=== PATIENT | female | born 1965 | race Caucasian/White ===

== ENCOUNTER 2017-04-08 07:30 | Inpatient (IN) | payer MEDICARE ==
[2017-04-08] VITALS (15 sets, daily range): BP systolic 81–126; BP diastolic 55–84; BMI 37.4
[~2017-04-08] VITALS: Ht 165.1 cm; Wt 103.9 kg
[~2017-04-08 07:30] MED LIST: CELEXA10 MG PO; FUROSEMIDE20 MG PO; K-TAB10 MEQ PO; LISINOPRIL10 MG PO; METOPROLOL TAR100 M1 PO; OMEPRAZOLE20 M1 PO; PROVENTIL/2.5 MG/3 M INH; ULTRAM50 MG PO; VENTOLIN HFA18 GM INH; VOLTAREN75 MG PO; ZANAFLEX4 MG PO
[2017-04-08 08:26] LABS: BASOPHILS 0.6 % (0-2); EOSINOPHILS 3.4 % (0-7); HEMATOCRIT 44.2 % (36.0-48.0); HEMOGLOBIN 14.6 g/dL (12-16); IMMATURE GRANULOCYTES 0.3 % (0-5); LYMPHOCYTES 21.2 % (15-50); MCH 32.4 pg (26.0-34.0); MCV 98.2 fL (80.0-100.0); MONOCYTES 5.7 % (2-11); NEUTROPHILS 68.8 % (40-80); PLATELET COUNT 274 10x3/uL (130-400); RDW 12.7 % (11.5-14.5)
[2017-04-08 08:31] LABS: ALBUMIN 3.7 g/dL (3.4-5.0); ALKALINE PHOSPHATASE 67 U/L (46-116); ALT (SGPT) 31 U/L (10-68); BILIRUBIN - TOTAL 0.24 mg/dL (0.2-1.3); CALC OSMOLALITY 271 mosm/kg (275-300); CALCIUM 9.2 mg/dL (8.5-10.1); CARBON DIOXIDE 32.5 mmol/L (21.0-32.0); CHLORIDE - SERUM 91 mmol/L (98-107); CREATININE - SERUM 0.8 mg/dL (0.6-1.3); PROTEIN - SERUM 8.8 g/dL (6.4-8.2); SODIUM 132 mmol/L (136-145); UREA NITROGEN 17 mg/dL (7-18); eGFR NON AFRICAN AMERICAN 80 mL/min (90-120)
[2017-04-08 08:33] LABS: GLUCOSE 188 mg/dL (74-106)
[2017-04-08 08:52] LABS: CREATINE KINASE 390 UL (21-215); MAGNESIUM - SERUM 1.8 mg/dL (1.8-2.4); PRO BNP 220 pg/mL (0-125); TROPONIN-I 0.042 ng/mL (0.000-0.060)
[2017-04-08 10:15] LABS: APPEARANCE CLEAR (CLEAR); COLOR YELLOW (YELLOW); GLUCOSE NEGATIVE (NEGATIVE); LEUKOCYTE ESTERASE TRACE (NEGATIVE); NITRITE NEGATIVE (NEGATIVE); PROTEIN 3+ mg/dL (NEGATIVE); SPECIFIC GRAVITY 1.015 (1.005-1.020)
[2017-04-08 10:16] LABS: BACTERIA FEW /hpf (NONE SEEN); BILIRUBIN NEGATIVE (NEGATIVE); GRANULAR CAST RARE /lpf (NONE SEEN); HYALINE CAST RARE /lpf (NONE SEEN); KETONE NEGATIVE (NEGATIVE); MUCUS <1+ /lpf (NONE SEEN); RED CELLS - URINE 0-5 /hpf (0-5); UROBILINOGEN NORMAL (NORMAL); WHITE CELLS - URINE 0-5 /hpf (0-5)
[2017-04-08 10:17] LABS: UDS - AMPHET NEGATIVE QUAL (NEGATIVE); UDS - BARB NEGATIVE QUAL (NEGATIVE); UDS - BENZO POSITIVE QUAL (NEGATIVE); UDS - COCAINE NEGATIVE QUAL (NEGATIVE); UDS - METH NEGATIVE QUAL (NEGATIVE); UDS - OPIATE NEGATIVE QUAL (NEGATIVE); UDS - PCP NEGATIVE QUAL (NEGATIVE); UDS - THC NEGATIVE QUAL (NEGATIVE)
--- NOTE | 2017-04-08 10:39 | NUR ---
REC'D PT FROM ER, PT ON VENT, NO FAMILY PRESENT, VSS, SEE SHIFT ASSESSMENT. ROOM FREE OF CLUTTER, BED ALARM ACTIVE, BED LOCKED IN LOWEST POSITION, WILL CONTINUE TO MONITOR PT.
--- NOTE | 2017-04-08 11:07 | NUR ---
AT THE BEDSIDE UPON ARRIVAL, INFORMED OF CONSULT ON PT.
--- NOTE | 2017-04-08 12:25 | NUR ---
PT FAMILY AT THE BEDSIDE, ALL QUESTIONS ANSWERED, PASSWORD INITIATED, WILL CONTINUE TO MONTIOR PT.
--- NOTE | 2017-04-08 14:31 | NUR ---
AT THE BEDSIDE, ADJUSTMENTS MADE TO VENT, PT TOLERATED WELL, WILL CONTINUE TO MONITOR PT.
--- NOTE | 2017-04-08 15:00 | NUR ---
PT SEDATED ON VENT, PT FAMILY AT THE BEDSIDE, ALL QUESTIONS ANSWERED, VSS, REASSESSMENT COMPELTED, SEE FLOW SHEET. ROOM FREE OF CLUTTER, CALL LIGHT IN REACH, WILL CONTINUE TO MONITOR PT.
--- NOTE | 2017-04-08 17:58 | NUR ---
DR. FUNEZ AT THE BEDSIDE, [facility], WILL CONTINUE TO MONITOR PT.
--- NOTE | 2017-04-08 18:26 | NUR ---
PT FAMILY AT THE BEDSIDE, ALL QUESTIONS ANSWERED, VSS, WILL CONTINUE TO MONITOR PT.
--- NOTE | 2017-04-08 18:39 | NUR ---
DR. VERGARA INFORMED OF CONSULT, INFORMED HIM THAT DR. FUNEZ SAID "IT IS OKAY TO SEE PT TOMORROW."
--- NOTE | 2017-04-08 18:41 | NUR ---
SPOKE WITH [employer] TO INFORM OF EEG ORDER FROM DR. FUNEZ, INFORMED HER THAT DR. FUNEZ SAID "THEY CAN DO IT IN THE MORNING.", "OKAY, I WILL LET THEM KNOW."
--- NOTE | 2017-04-08 19:15 | NUR ---
REPORT RECIEVED, SHIFT ASSESSMENT COMPLETE, PT IS SEDATED ON VENT, FOLLOWS COMMANDS, ON 60% FIO2 WITH 98% O2 SAT. CRACKLES HEARD IN B/L UPPER LOBES, DIMINISHED IN B/L LOWER LOBES, S1S2, CM-NSR, PATENT OGT TO LIWS WITH GREEN DRAINAGE NOTED, PLACEMENT CHECKED WITH SM AIR BOLUS, PATENT RIGHT HAND AND RIGHT WRIST PIV..SEE FLOW SHEET... ABDOMEN IS SOFT AND ROUND WITH ACTIVE BS, PATENT F/C WITH C/Y UOP, NO EDEMA NOTED, ALL PPP, VSS, WILL CON'T TO MONITOR
--- NOTE | 2017-04-08 21:15 | NUR ---
HEADLICE FOUND IN PT HAIR AT THIS TIME, ADVERTISING PROJECT MANAGER AND PHARMACY NOTIFIED,
--- NOTE | 2017-04-08 22:45 | NUR ---
PT TREATED FOR LICE, HAIR WASHED AND COMBED, COMPLETE BATH AND LINEN CHANGE
[2017-04-09] VITALS (25 sets, daily range): BP systolic 93–136; BP diastolic 62–92; Ht 165.1 cm; Wt 103.9 kg
--- NOTE | 2017-04-09 01:15 | NUR ---
REPOSITIONED FOR COMFORT, ORAL CARE PROVIDED,
[2017-04-09 04:35] LABS: BASOPHILS 0.2 % (0-2); EOSINOPHILS 0.6 % (0-7); HEMOGLOBIN 12.8 g/dL (12-16); IMMATURE GRANULOCYTES 0.3 % (0-5); LYMPHOCYTES 11.6 % (15-50); MCH 31.8 pg (26.0-34.0); MCHC 32.8 g/dL (31.0-37.0); MCV 96.8 fL (80.0-100.0); MEAN PLATELET VOLUME 12.2 fL (7.4-10.4); MONOCYTES 6.9 % (2-11); NEUTROPHILS 80.4 % (40-80); RBC 4.03 10x6/uL (4.00-5.40); RDW 12.9 % (11.5-14.5); WBC 15.6 10x3/uL (4.8-10.8)
[2017-04-09 04:47] LABS: PLATELET COUNT 217 10x3/uL (130-400)
--- NOTE | 2017-04-09 05:00 | NUR ---
REPOSITIONED FOR COMFORT, ORAL CARE PROVIDED,
[2017-04-09 05:21] LABS: ALKALINE PHOSPHATASE 54 U/L (46-116); ALT (SGPT) 26 U/L (10-68); BILIRUBIN - TOTAL 0.47 mg/dL (0.2-1.3); CALCIUM 8.7 mg/dL (8.5-10.1); CARBON DIOXIDE 32.2 mmol/L (21.0-32.0); CHLORIDE - SERUM 95 mmol/L (98-107); CREATININE - SERUM 0.6 mg/dL (0.6-1.3); GLUCOSE 163 mg/dL (74-106); POTASSIUM - SERUM 3.5 mmol/L (3.5-5.1); PROTEIN - SERUM 7.2 g/dL (6.4-8.2); SODIUM 135 mmol/L (136-145); eGFR NON AFRICAN AMERICAN > 90 mL/min (90-120)
[2017-04-09 05:23] LABS: CALC OSMOLALITY 272 mosm/kg (275-300); UREA NITROGEN 10 mg/dL (7-18)
[2017-04-09 05:24] LABS: TROPONIN-I 0.139 ng/mL (0.000-0.060)
--- NOTE | 2017-04-09 07:00 | NUR ---
PT REPORT REC'D, PT CARE ASSUMED, PT SEDATED ON VENT, OPENS EYES AND FOLLOWS COMMANDS. BILAT WRIST RESTRAINTS, SKIN INTACT. BRUISES NOTED ON BIALT ARMS. BARRETT CATHETER FREE OF KINKS TO GRAVITY WITH CLEAR YELLOW URINE RETURN. SHIFT ASSESSMENT COMPLETED, SEE FLWO SHEET. ROOM FREE OF CLUTTER, CALL LIGHT IN REACH, BED LOCKED IN LOWEST POSITION, WILL CONTINUE TO MONITOR PT.
--- NOTE | 2017-04-09 07:30 | NUR ---
AT THE BEDSIDE
--- NOTE | 2017-04-09 09:15 | NUR ---
NO FAMILY AT THE BEDSIDE, REPOSITIONED PT, NO SIGNS OF DISTRESS, WILL CONTINUE TO MONITOR PT.
--- NOTE | 2017-04-09 11:00 | NUR ---
REPOSITIONED PT, PROPPED WITH PILLOWS, VSS, REASSESSMENT COMPLETED, SEE FLOW SHEET. ROOM FREE OF CLUTTER, CALL LIGHT IN REACH, WILL CONTINUE TO MONITOR PT.
--- NOTE | 2017-04-09 13:00 | NUR ---
STARTED TUBE FEEDING PER ORDER, BEGAN PULMOCARE AT 10CC/HR, WILL CONTINUE TO MONITOR PT.
--- NOTE | 2017-04-09 15:00 | NUR ---
PT FAMILY AT THE BEDSIDE, ALL QUESTIONS ANSWERED, VSS, WILL CONTINUE TO MONITOR PT.
--- NOTE | 2017-04-09 18:09 | NUR ---
PT FAMILY AT THE BEDSIDE, PT'S FAMILY SAYS THAT PT "GOT A NEW ANTI ANXIETY MEDICINE, SHE TOOK IT AND SAID SHE FELT DIZZY", ASKED PTS FAMILY TO BRING THE ANXIETY MEDS THAT SHE TOOK, I HAD CALLED [facility] AND SPOKE WITH NORRIS THE PHARMACIST, SHE STATED "SHE DOES NOT HAVE ANY ANXIETY MEDICATIONS FILLED OR PRESCRIBED HERE." DR. FUNEZ DENIED PRESCRIBING ANY ANXIETY MEDICATIONS, SPOKE WITH CHARLY MENA AT DR. LIMA'S OFFICE, "DR. LIMA DID NOT PRESCRIBE ANY ANXIETY MEDICATIONS.". PTS FAMILY BROUGTH PTS RX FOR CITALOPRAM AND TIZANIDINE, MEDICATIONS THAT PT HAS HAD PREVIOUSLY. WILL CONTINUE TO MONITOR PT.
--- NOTE | 2017-04-09 18:30 | NUR ---
BEGAN INFUSING 3RD UNIT OF PRBC'S ORDERED, SEE FLOW SHEET. WILL CONTINUE TO MONITOR PT.
--- NOTE | 2017-04-09 19:00 | NUR ---
REPORT RECIEVED, SHIFT ASSESSMENT COMPLETE, PT IS SEDATED IN VENT, FOLLOWS COMMANDS, ON 40% FIO2 WITH 98% O2 SAT. CRACKLES HEARD IN B/L UPPER LOBES, DIMINISHED IN B/L LOWER LOBES, S1S2, CM-NSR, PATENT LEFT SHOULDER/RIGHT WRIST PIV...SEE IV FLOW SHEET..ABDOMEN IS SOFT AND ROUND WITH ACTIVE BS, PATENT F/C WITH YELLOW UOP, EDEMA IN RIGHT HAND ONLY, ALL PPP, VSS, WILL CON'T TO MONITOR
--- NOTE | 2017-04-09 21:02 | NUR ---
FAMILY AT BEDSIDE, UPDATE GIVEN
--- NOTE | 2017-04-09 23:18 | NUR ---
REASSESSMENT COMPLETE, NO CHANGES NOTED, REPOSITIONED FOR COMFORT, ORAL CARE PROVIDED,
[2017-04-10] VITALS (25 sets, daily range): BP systolic 82–171; BP diastolic 30–109
--- NOTE | 2017-04-10 01:15 | NUR ---
COMPLETE BATH AND LINEN CHANGE, PT TOLERATED WELL
--- NOTE | 2017-04-10 03:00 | NUR ---
REASSESSMENT COMPLETE, NO CHANGES NOTED, WILL CON'T TO MONITOR
[2017-04-10 05:12] LABS: BASOPHILS 0.6 % (0-2); EOSINOPHILS 1.2 % (0-7); HEMOGLOBIN 11.7 g/dL (12-16); IMMATURE GRANULOCYTES 0.3 % (0-5); LYMPHOCYTES 18.9 % (15-50); MCH 31.7 pg (26.0-34.0); MCHC 32.5 g/dL (31.0-37.0); MCV 97.6 fL (80.0-100.0); MEAN PLATELET VOLUME 12.1 fL (7.4-10.4); MONOCYTES 10.9 % (2-11); NEUTROPHILS 68.1 % (40-80); PLATELET COUNT 174 10x3/uL (130-400); RBC 3.69 10x6/uL (4.00-5.40); RDW 13.3 % (11.5-14.5)
[2017-04-10 05:24] LABS: WBC 9.5 10x3/uL (4.8-10.8)
--- NOTE | 2017-04-10 05:30 | NUR ---
REPOSITIONED FOR COMFORT, ORAL CARE PROVIDED,
[2017-04-10 05:41] LABS: ALBUMIN 2.7 g/dL (3.4-5.0); ALKALINE PHOSPHATASE 51 U/L (46-116); ALT (SGPT) 21 U/L (10-68); CALC OSMOLALITY 267 mosm/kg (275-300); CALCIUM 8.4 mg/dL (8.5-10.1); CARBON DIOXIDE 31.1 mmol/L (21.0-32.0); CHLORIDE - SERUM 97 mmol/L (98-107); CREATININE - SERUM 0.8 mg/dL (0.6-1.3); GLUCOSE 156 mg/dL (74-106); POTASSIUM - SERUM 3.5 mmol/L (3.5-5.1); PROTEIN - SERUM 6.5 g/dL (6.4-8.2); SODIUM 134 mmol/L (136-145); UREA NITROGEN 5 mg/dL (7-18); eGFR NON AFRICAN AMERICAN 80 mL/min (90-120)
--- NOTE | 2017-04-10 09:27 | NUR ---
EXTUBATED TO NC 2LPM PER RT, BILL. WELL NO NOTED DISTRESS
--- NOTE | 2017-04-10 10:14 | NUR ---
Nutrition follow-up: Pt extubated today. RDN will monitor patients diet advancement and tolerance.
--- NOTE | 2017-04-10 14:00 | NUR ---
* Is the patient Alert and Oriented? Yes 0 * How many steps to enter\exit or inside your home? 0 0 * PCP Dr. Felton 0 * Pharmacy [facility] 0 * Preadmission Environment Home with Family 0 * ADLs Independent 0 * Equipment Cane Nebulizer Oxygen 0 * List name and contact numbers for known caregivers / representatives who currently or will assist patient after discharge: Josue Roche [phone] Son Kaylee Rey Mother - Danuta Hardin 0 * Can the patient safely return to the preadmission environment? Yes 0 * Has this patient been hospitalized within the prior 30 days at any hospital? No 04/10/2017 14:03 DCP: Discharge Planning Patient Name: JOANNA SCHERER Admission Status: ER Accout number: [id number] Admission Date: 04-08-2017 : 1965 Admission Diagnosis:UNSPECIFIED CONVULSIONS Attending: LUIS FERNANDO Current LOS: 2 Planned Disposition: Home Primary Insurance: MEDICARE A & B Discharge Planning Comments: CM met with patient to assess dc plans/needs. Patient states she lives a home with her mother & son. She reports she uses a cane for mobility and has home O2, which she wears at 2L @ HS & a nebulizer. She denies having home health services. At dc, she plans to return home. She may benefit from home health services. CM will follow & assist as needed. Cardiology Teacher: Miladys Stevens
--- NOTE | 2017-04-10 19:15 | NUR ---
REPORT RECVD. CARE ASSUMED. INITIAL ASSMNT COMPLETED. SEE FLOWSHEET FOR ALL FINDINGS. AWAKE AND AOX4. PERRLA NOTED. MAEW. RESP EVEN AND SHALLOW. LUNG SOUNDS COARSE WITH EXP WHEEZES. FREQUENT WEBSPHERE MESSAGE BROKER DEVELOPER COUGH. SPO2 95% ON O2 AT 2 LPM NC. SR ONTHE MONITOR. PULSES PALP X4. SCDS IN USE. AFEBRILE. ABD SOFT, BSA X4. TAKING SOFT DIET AND PO FLUIDS NO DIFF. F/C PATENT WITH GREENISH YELLOW UOP. REPOSITIONS INDEPENDENTLY IN BED. BED ALARM ON. DENIES DISCOMFORT. HOB UP. C/L IN REACH. CONT CURRENT POC.
--- NOTE | 2017-04-10 21:00 | NUR ---
HS MEDS GIVEN. NO VISITORS. POSITIONED SELF FOR COMFORT. VSS. BED ALARM ON. C/L IN REACH. CONT CURRENT POC.
--- NOTE | 2017-04-10 23:15 | NUR ---
REASSESSMENT COMPLETED. SEE FLOWSHEET FOR ALL FINDINGS. RESTF UL. LOVE NOTED. MAEW. RESP EVEN AND SHALLOW. LUNG SOUNDS COARSE WITH EXP WHEEZES. FREQUENT BEET END SUPERVISOR COUGH. SPO2 95% ON O2 AT 2 LPM NC. SR ON THE MONITOR. PULSES PALP X4. SCDS IN USE. AFEBRILE. ABD SOFT, BSA X4. TAKING SOFT DIET AND PO FLUIDS NO DIFF. F/C PATENT WITH GREENISH YELLOW UOP. REPOSITIONS INDEPENDENTLY IN BED. BED ALARM ON. DENIES DISCOMFORT. HOB UP. C/L IN REACH. CONT CURRENT POC.
[2017-04-11] VITALS (13 sets, daily range): BP systolic 139–169; BP diastolic 77–117
--- NOTE | 2017-04-11 01:07 | NUR ---
RESTING WITH EYES CLOSED. FREQ MATURITY CHECKER COUGH CONTINUES. SPO2 95% ON O2 AT 2 LPM NC. SR ON THE MONITOR. NO NEEDS COICED. CONT CURRENT POC.
--- NOTE | 2017-04-11 03:10 | NUR ---
REASSESSMENT COMPLETED. SEE FLOWSHEET FOR ALL FINDINGS. RESTFUL. PERRLA NOTED. MAEW. RESP EVEN AND SHALLOW. LUNG SOUNDS COARSE WITH EXP WHEEZES. FREQUENT EXCAVATING MACHINE OPERATOR COUGH. SPO2 95% ON O2 AT 2 LPM NC. SR ON THE MONITOR. PULSES PALP X4. SCDS IN USE. AFEBRILE. ABD SOFT, BSA X4. TAKING SOFT DIET AND PO FLUIDS NO DIFF. F/C PATENT WITH YELLOW UOP. REPOSITIONS INDEPENDENTLY IN BED. BED ALARM ON. DENIES DISCOMFORT. HOB UP. C/L IN REACH. CONT CURRENT POC.
[2017-04-11 03:51] LABS: BASOPHILS 0.5 % (0-2); EOSINOPHILS 1.7 % (0-7); HEMOGLOBIN 11.6 g/dL (12-16); IMMATURE GRANULOCYTES 0.2 % (0-5); LYMPHOCYTES 16.2 % (15-50); MCH 31.4 pg (26.0-34.0); MCHC 31.4 g/dL (31.0-37.0); MEAN PLATELET VOLUME 11.6 fL (7.4-10.4); MONOCYTES 9.6 % (2-11); NEUTROPHILS 71.8 % (40-80); PLATELET COUNT 185 10x3/uL (130-400); RBC 3.69 10x6/uL (4.00-5.40); RDW 13.2 % (11.5-14.5); WBC 8.7 10x3/uL (4.8-10.8)
[2017-04-11 04:01] LABS: CALC OSMOLALITY 277 mosm/kg (275-300); CARBON DIOXIDE 33.5 mmol/L (21.0-32.0); CHLORIDE - SERUM 102 mmol/L (98-107); CREATININE - SERUM 0.6 mg/dL (0.6-1.3); GLUCOSE 140 mg/dL (74-106); POTASSIUM - SERUM 3.4 mmol/L (3.5-5.1); SODIUM 140 mmol/L (136-145); eGFR NON AFRICAN AMERICAN > 90 mL/min (90-120)
[2017-04-11 04:03] LABS: MCV 100.3 fL (80.0-100.0)
[2017-04-11 04:04] LABS: UREA NITROGEN 3 mg/dL (7-18)
--- NOTE | 2017-04-11 05:12 | NUR ---
RESTING WITH NO DISTRESS. VSS. HYPERTENSIVE AT TIMES. FREQ ADMINISTRATION PROFESSIONAL COUGH REMAINS. SPO2 95%. HOB UP. C/L IN REACH. BED ALARM ON. CONT CURRENT POC.
--- NOTE | 2017-04-11 06:17 | NUR ---
FAMILY AT BEDSIDE. UPDATE GIVEN.
--- NOTE | 2017-04-11 06:47 | NUR ---
DR VERGARA AT BEDSIDE.
--- NOTE | 2017-04-11 14:35 | NUR ---
RECIEVED FROM ICU. ALERT, ORIENTED. TELEMERTY SHOWS SR 73. V/S STABLE. O2 AT .5 L/M PER NC. IV TO LEFT SHOULDER. BARRETT CATH TO BEDSIDE DRAINAGE BAG. SCDS ON. DENIES ANY NEEDS. CALL LIGHT IN REACH WITH SR UP. WILL MONITOR L
--- NOTE | 2017-04-11 15:57 | NUR ---
LYING QUIETLY. FAMILY AT BEDSIDE. DENIES ANY NEEDS. TELEMERTY SHOWS SR. SR UP WITH CALL LIGHT IN REACH
--- NOTE | 2017-04-11 19:00 | NUR ---
RECEIVED REPORT AND ASSUMED PT CARE FROM DAYSCAFT NURSE @ THIS TIME.
--- NOTE | 2017-04-11 22:30 | NUR ---
PT WITHOUT IV ACCESS FROM DAYSHIFT, MEDS DUE AT THIS TIME. LEFT HAND SITED WITH 22 GA ANGIOCATH X1 STICK. GIVEN MEDICATIONS AND ZOSYN STARTED. WILL MONITOR.
--- NOTE | 2017-04-12 00:15 | NUR ---
PT PULLS BARRETT OUT, BULB INFLATED AND INTACT UPON REMOVAL. NO BLEEDING NOTED. PT INCONT OF STOOL WELL. PERICARE PROVIDED. HAT PLACED IN TOILET TO ENSURE CONTINUED ACCURATE RECORD OF URINARY OUTPUT. PT REMAINS WITH SHORT TERM MEMORY LOSS. CAN FOLLOW DIRECTIONS, HOWEVER CAN NOT RECALL CONVERSATIONS AFTER A FEW MOMENTS. BED ALARM REMAINS SET. WILL CONT TO MONITOR.
[2017-04-12 05:54] LABS: BASOPHILS 0.6 % (0-2); EOSINOPHILS 3.1 % (0-7); HEMATOCRIT 37.8 % (36.0-48.0); HEMOGLOBIN 11.7 g/dL (12-16); IMMATURE GRANULOCYTES 0.2 % (0-5); LYMPHOCYTES 20.8 % (15-50); MCH 31.3 pg (26.0-34.0); MCV 101.1 fL (80.0-100.0); MEAN PLATELET VOLUME 12.4 fL (7.4-10.4); MONOCYTES 10.6 % (2-11); NEUTROPHILS 64.7 % (40-80); PLATELET COUNT 208 10x3/uL (130-400); RBC 3.74 10x6/uL (4.00-5.40); WBC 8.9 10x3/uL (4.8-10.8)
[2017-04-12 06:08] LABS: CALC OSMOLALITY 277 mosm/kg (275-300); CALCIUM 9.4 mg/dL (8.5-10.1); CARBON DIOXIDE 35.5 mmol/L (21.0-32.0); CHLORIDE - SERUM 101 mmol/L (98-107); CREATININE - SERUM 0.6 mg/dL (0.6-1.3); GLUCOSE 134 mg/dL (74-106); POTASSIUM - SERUM 3.7 mmol/L (3.5-5.1); SODIUM 139 mmol/L (136-145); eGFR NON AFRICAN AMERICAN > 90 mL/min (90-120)
[2017-04-12 06:09] LABS: UREA NITROGEN 8 mg/dL (7-18)
[2017-04-12 08:00] VITALS: BP 119/72
[2017-04-12 11:35] VITALS: BP 113/75
[2017-04-12 15:43] VITALS: BP 138/73
--- NOTE | 2017-04-12 19:00 | NUR ---
PT AMBULATING HALLS.
--- NOTE | 2017-04-12 19:35 | NUR ---
PT HAS PULLED IVSL OUT OF LEFT HAND WITH CATH TIP INTACT. SHE STATES "I DIDN'T WANT IT ANYMORE". EXPLAINED TO PT THE NEED FOR THE IVF AND IV MEDS. PT NOT RETAINING INFORMATION LONGER THAN ABOUT 5 MINUTES. REPEATEDLY ASKING SAME QUESTIONS REGARDING DOCTOR AND IV AND MEDS ETC.
[2017-04-12 20:00] VITALS: BP 139/88
--- NOTE | 2017-04-12 20:30 | NUR ---
RESITED IV TO RT HAND 22G X1 STICK. SECURED VERY WELL AND REITERATED THE NEED FOR THE IV.
--- NOTE | 2017-04-12 21:25 | NUR ---
PT PULLED IV OUT OF HAND, CATH TIP INTACT. ATTEMPTS TO REORIENT PT UNSUCCESSFUL. CONT TO ASK SAME REPEATED QUESTIONS.
--- NOTE | 2017-04-12 21:30 | NUR ---
RESITED IV TO RT FOREARM, 20G X1. TAPED AND SECURED ALL THE WAY UP HER FOREARM.
--- NOTE | 2017-04-13 00:20 | NUR ---
MULTIPLE ATTEMPTS TO REORIENT PT UNUSCCESSFUL. PT ASSISTED TO BED, REITERATED USING THE CALL LIGHT.
--- NOTE | 2017-04-13 01:30 | NUR ---
PT RESTING WELL WITH EYES CLOSED, CONT TO MONITOR.
--- NOTE | 2017-04-13 03:16 | NUR ---
PT DISORIENTED, UNABLE TO REORIENT. HAS PULLED 3RD IV OUT TONIGHT, INSISTENT THAT SHE ISN'T SUPPOSED TO HAVE ONE AND REFUSING TO BE RESITED AGAIN FOR ANTIBIOTICS AND IVF.
--- NOTE | 2017-04-13 03:47 | NUR ---
PT CALLS NURSE IN ROOM STATING "IT'S OK NOW IF YOU WANT TO DO ANOTHER ONE OF THOSE SHOT THINGS". CLARIFIED SHE WAS TALKING ABOUT THE IV, SHE STATED YES. EXPLAINED TO PT SHE HAD ALREADY GONE THROUGH 4 IV'S TONIGHT AND I WASN'T GOING TO RESITE ANOTHER AT THIS TIME DUE TO HER CONFUSION AND CONSTANT PULLING AT THEM. SHE STATES "YOU ARE A LIAR AND I HAVE ONLY HAD ONE IV, AND YOU ARE THE ONE THAT PULLED THAT ONE OUT. I CAN'T BELIEVE THAT YOU'RE GONNA STAND THERE AND TELL ME I'VE BEEN CONFUSED AND PULLED IV'S OUT. I PULLED THAT IV OUT BC IT WAS TIME FOR IT TO COME OUT AND I WANT TO KNOW WHAT MEDS YOU ARE ON!" ALL ATTEMPTS TO REORIENT PT HAVE BEEN UNSUCCESSFUL.
[2017-04-13 04:00] VITALS: BP 167/80
[2017-04-13 08:40] VITALS: BP 106/35
--- NOTE | 2017-04-13 09:00 | NUR ---
UP AMBULATING WITH WALKER. GAIT STEADY.
--- NOTE | 2017-04-13 10:59 | NUR ---
JUANJO AT BS.
--- NOTE | 2017-04-13 12:22 | NUR ---
ABGS COMPLETED. 02 3L NC APPLIED. ENCOURAGED PT TO LEAVE O2 ON. WILL MONITOE.
[2017-04-13 12:39] VITALS: BP 145/72
[2017-04-13 16:51] VITALS: BP 172/79
--- NOTE | 2017-04-13 17:38 | NUR ---
PATIENT WILL NOT WEAR OXYGEN INSPITE OF LOW PaO2. SHE REMOVES HER CANNULA AND WILL NOT STAY IN HER ROOM.
--- NOTE | 2017-04-13 20:04 | NUR ---
PT'S SON AND ON UNIT AND ARE TAKING PATIENT FOR A WALK. WILL MONITOR.
--- NOTE | 2017-04-13 21:08 | NUR ---
NOTIFIED SECURITY THAT PT AND SON/ HAVE NOT RETURNED TO FLOOR. HE WILL DO A WALK THROUGH AND SEE IF HE CAN FIND HER,
[2017-04-14 00:44] VITALS: BP 122/68
[2017-04-14 05:25] VITALS: BP 173/79
[2017-04-14 05:42] LABS: BASOPHILS 0.6 % (0-2); EOSINOPHILS 3.8 % (0-7); HEMATOCRIT 37.6 % (36.0-48.0); HEMOGLOBIN 11.8 g/dL (12-16); IMMATURE GRANULOCYTES 0.1 % (0-5); LYMPHOCYTES 32.3 % (15-50); MCH 31.2 pg (26.0-34.0); MCHC 31.4 g/dL (31.0-37.0); MCV 99.5 fL (80.0-100.0); MEAN PLATELET VOLUME 12.1 fL (7.4-10.4); MONOCYTES 9.9 % (2-11); NEUTROPHILS 53.3 % (40-80); PLATELET COUNT 223 10x3/uL (130-400); RBC 3.78 10x6/uL (4.00-5.40); RDW 12.7 % (11.5-14.5); WBC 8.1 10x3/uL (4.8-10.8)
[2017-04-14 06:01] LABS: CALC OSMOLALITY 278 mosm/kg (275-300); CALCIUM 8.7 mg/dL (8.5-10.1); CHLORIDE - SERUM 99 mmol/L (98-107); CREATININE - SERUM 0.5 mg/dL (0.6-1.3); GLUCOSE 103 mg/dL (74-106); POTASSIUM - SERUM 3.3 mmol/L (3.5-5.1); SODIUM 140 mmol/L (136-145); UREA NITROGEN 13 mg/dL (7-18); eGFR NON AFRICAN AMERICAN > 90 mL/min (90-120)
--- NOTE | 2017-04-14 08:10 | NUR ---
ASSESSMENT DONE. DENIES NEEDS.
[2017-04-14 08:23] VITALS: BP 160/80
--- NOTE | 2017-04-14 10:29 | NUR ---
SITTING UP SOB WITH CALL LIGHT IN REACH. SKIP NEEDS AT THIS TIME. WILL MONITOR.
[2017-04-14 12:40] VITALS: BP 128/83
[2017-04-14 16:15] VITALS: BP 136/84
--- NOTE | 2017-04-14 17:05 | NUR ---
WITHOUT CHANGES OR DISTRESS NOTED AT THIS TIME. DENIES NEEDS.
[2017-04-14 19:00] VITALS: BP 197/102
--- NOTE | 2017-04-14 19:39 | NUR ---
RESUMED CARE OF PT, LYING IN BED WITH EYES CLOSED RESPIRATIONS EVEN AND UNLABORED ON ROOM AIR. NO NEEDS NOTED AT THIS TIME. CALL LIGHT IN REACH. SEE NURSE ASSESSMENT. WILL CONTINUE TO MONITOR.
--- NOTE | 2017-04-14 22:20 | NUR ---
NIGHT MEDS GIVEN, NO NEEDS AT THIS TIME. WILL CONTINUE TO MONITOR
[2017-04-15] VITALS: BP 138/75
[2017-04-15 04:00] VITALS: BP 148/75
--- NOTE | 2017-04-15 06:47 | NUR ---
NO CHANGES FROM PREVIOUS ASSESSMENT, CALL LIGHT IN REACH.
--- NOTE | 2017-04-15 07:30 | NUR ---
PT IN RIGHT LATERAL POSITION RESTING WITH EYES CLOSED. BREATHING TREATMENT NOW. AROUSES TO VERBAL STIMULATION AND DENIES PAIN OR NEEDS.
[2017-04-15 07:35] LABS: CALC OSMOLALITY 274 mosm/kg (275-300); CALCIUM 8.8 mg/dL (8.5-10.1); CARBON DIOXIDE 33.2 mmol/L (21.0-32.0); CHLORIDE - SERUM 100 mmol/L (98-107); CREATININE - SERUM 0.6 mg/dL (0.6-1.3); GLUCOSE 117 mg/dL (74-106); MAGNESIUM - SERUM 1.5 mg/dL (1.8-2.4); PHOSPHOROUS 4.6 mg/dL (2.5-4.9); POTASSIUM - SERUM 4.6 mmol/L (3.5-5.1); SODIUM 136 mmol/L (136-145); eGFR NON AFRICAN AMERICAN > 90 mL/min (90-120)
[2017-04-15 07:36] LABS: UREA NITROGEN 19 mg/dL (7-18)
[2017-04-15 08:00] VITALS: BP 148/67
[2017-04-15] MEDS ORDERED: BROVANA15 MCG/2 M INH (08:08)
[2017-04-15] MEDS ORDERED: PULMICORT0.5 MG/21 UPD (08:09)
[2017-04-15] MEDS ORDERED: SEROQUEL25 MG PO (08:10)
[2017-04-15] MEDS ORDERED: DILANTIN100 MG PO (08:10)
--- NOTE | 2017-04-15 09:56 | NUR ---
PT IN RIGHT TILT POSITION. PHYSICAL ASSESSMENT DONE SEE SHIFT ASSESSMENT. 02 AT 3L/MIN VIA NC IN PLACE. CRACKLES THAT IMPROVE WITH COUGHING NOTED IN ALL PULIDO WELL RHONCHI IN LOWER LOBES BILATERALLY. PT RATES PAIN 7/10 IN HIP AND REPORTS THAT IT IS CHRONIC. AM MEDS GIVEN, SEE EMAR. PT DENIES FURTHER NEEDS AT THIS TIME.
--- NOTE | 2017-04-15 10:11 | NUR ---
Patient Name: JOANNA SCHERER Encounter No: [id number] : 1965 Primary Insurance: MEDICARE A & B Anticipated DC Date: Planned Disposition: Home DCP follow-up note: CM RECEIVED ORDER FOR HOME OXYGEN, NEBULIZER AND HOME HEALTH. CM MET WITH PT IN ROOM, DISCUSSED DISCHARGE PLAN AND NEEDS. PT NOT WEARING OXYGEN, REPORTS SHE WEARS IT AT HOME AT NIGHT ONLY. PT REPORTS PLAN TO DISCHARGE HOME TODAY, WILL CALL FAMILY TO TRY TO ARRANGE TRANSPORTATION HOME TODAY. PT HAS HOME OXYGEN THAT SHE WEARS AT NIGHT, A NEBULIZER AND DOES NOT THINK SHE NEEDS HOME HEALTH. CM DISCUSSED HOME HEALTH SERVICES IN DETAIL, PT REPORTS SHE DOES NOT FEEL THAT SHE IS HOME CONFINED OR WILL HAVE ANY TROUBLE GETTING OUT OF THE HOUSE AND DOES NOT NEED THERAPY OR NURSING AT THIS TIME. PT WILL CALL HER PCP IF SHE CHANGES HER MIND AFTER DISCHARGE. IMPORTANT MESSAGE FROM MEDICARE PROVIDED AND EXPLAINED. CM CALLED [facility], , SPOKE TO JIMMY, WHO REPORTS PT HAS HOME OXYGEN, NOT QUALIFIED OUTPATIENT FOR PORTABLE. CM NOTIFIED RN [facility] FOR NEED OF WALK TEST FOR PORTABLE OXYGEN QUALIFICATION. CM TO ARRANGE PORTABLE OXYGEN WITH [facility] FOR PT'S DISCHARGE HOME TODAY IF PT MEETS CRITERIA. CM TO FOLLOW AND ASSIST NEEDED. Candido Rosa, CASE MANAGEMENT
--- NOTE | 2017-04-15 11:25 | NUR ---
WRITTEN AND VERBAL DISCHARGE INSTRUCTIONS GIVEN. PT VERBALIZES UNDERSTANDING AND DENIES FURTHER QUESTIONS ABOUT ANY INSTRUCTIONS. PT AWAITING HOME HEALTH TO ARRIVE TO HOSPITAL TO SET UP PORTABLE OXYGEN DEVICE AND RIDE. DENIES FURTHER NEEDS AT THIS TIME.
[2017-04-15 12:00] VITALS: BP 118/58
--- NOTE | 2017-04-15 13:25 | NUR ---
PT SITTING UP AT BEDSIDE AWAITING HOME HEALTH TO SET UP PORTABLE OXYGEN.
--- NOTE | 2017-04-20 13:13 | EC ---
PATIENT:JOANNA SCHERER DATE OF SERVICE: 04/08/17 SEX: F MEDICAL RECORD: [id number] DATE OF : [birth year] LOCATION:D.M2 D.212 AGE OF PATIENT: 51 ADMISSION DATE: 04/08/17 REFERRING PHYSICIAN: INTERPRETING PHYSICIAN: DYAN MCDONALD MD ECHOCARDIOGRAM REPORT ECHO CHARGES 4 ECHO COMPLETE CLINICAL DIAGNOSIS: SOB ECHOCARDIOGRAPHIC MEASUREMENTS (adult normal given) AC root (d.<3.7cm) 3.1 LV Septum d (<1.2 cm> 1.2 Valve Excursion 1.8 LV Septum (systole) 1.7 Left Atria (s.<4.0cm> 3.4 LVPW d(<1.2cm) 1.3 RV (d.<2.3cm) 2.5 LVPW (sytole) 1.9 LV diastole(<5.6CM) 4.6 MV E-F(>70mm/sec) LV systole 2.8 LVOT Diameter 1.8 MV exc.(>10mm) Est.ejection fraction (50-75%) Pericardial Effusion N DOPPLER: LVIT A 73.0 E 107 LA RVSP 38.0 LVOT 109 AOP1/2T Asc. Ao 159 RVOT RA PA AV Gradient Peak 10.1 AV Mean 5.1 AV Area 1.7 MV Gradient Peak 5.4 MV Mean 2.0 MV Area COMMENTS: Welder Pipe Making: Ori STONER Sample Tailor:John Lanza TAPE# PACS DATE OF SERVICE: 04/11/2017 TWO-DIMENSIONAL ECHOCARDIOGRAM WITH DOPPLER Adequate two-dimensional color flow imaging, spectral Doppler, and M mode. Borderline left ventricular hypertrophy is present. Left ventricular internal dimensions are normal. The left ventricular wall motion appears to be normal with ejection fraction of 50%. The aortic valve is tricuspid with no evidence of stenosis on Doppler interrogation. Left atrium is normal at 3.3 centimeters. Mitral valve shows no prolapse with trace mitral regurgitation. Right-sided ECHOCARDIOGRAM REPORT [id number] JOANNA SCHERER chambers are grossly normal with mild tricuspid regurgitation. DYAN MCDONALD MD at 1313 CC: [id number] DICTATION DATE: 04/12/17 1200 TOWN ADMINISTRATOR: DM 04/13/17 1449 DIS IN 04/15/17 [facility] [address] [facility], [id number]
== END 2017-04-15 14:15 | disposition home or self-care (01) | DRG 871 ==
LOC: D.ER 07:30 → D.ICU 08:58 → D.M2 08:58
PROVIDERS: Emergency Medicine; Family Medicine; ADMIT Legal Medicine
PROC: 0T9B70Z Drainage of Bladder with Drainage Device, Via Natural or Artificial Opening (ICD-10-PCS; principal; 2017-04-08)
PROC: 0BH17EZ Insertion of Endotracheal Airway into Trachea, Via Natural or Artificial Opening (ICD-10-PCS; 2017-04-08)
PROC: 5A1945Z Respiratory Ventilation, 24-96 Consecutive Hours (ICD-10-PCS; 2017-04-08)
DX: A41.9 Sepsis, unspecified organism (principal); J96.02 Acute respiratory failure with hypercapnia; J96.01 Acute respiratory failure with hypoxia; J69.0 Pneumonitis due to inhalation of food and vomit; Q28.2 Arteriovenous malformation of cerebral vessels; J15.6 Pneumonia due to other Gram-negative bacteria; C34.90 Malignant neoplasm of unspecified part of unspecified bronchus or lung; J98.11 Atelectasis; J44.9 Chronic obstructive pulmonary disease, unspecified; R56.9 Unspecified convulsions; I10 Essential (primary) hypertension; E87.6 Hypokalemia; G31.84 Mild cognitive impairment of uncertain or unknown etiology; Z72.0 Tobacco use